=== PATIENT | female | born 1975 | race Caucasian/White ===

== ENCOUNTER 2020-10-12 12:11 | Emergency (ER) | payer MEDICAID ==
[~2020-10-12] VITALS: Ht 154.9 cm; Wt 122.0 kg
[2020-10-12 12:42] VITALS: BP 136/82
--- NOTE | 2020-10-12 12:57 | PHYS DOC ---
General Adult EDM: Chief Complaint: BACK PAIN OR INJURY HPI: HPI: Patient is a 45 year old female who presents to the ED today complaining of moderate low back pain with spasms, this is a chronic issue for this patient. Patient denies any injuries, denies any loss of bowel/bladder function, states she used to take oxycodone and oxycodone from her PCP. She states she called the PCP to get an appointment for refill and she was informed she has been terminated by the PCP. Review of Systems: Review of Systems: Constitutional: Denies fever or chills. [] GI: Denies abdominal pain, nausea, vomiting, bloody stools or diarrhea. [] : Denies dysuria. [] Musculoskeletal: Reports low back pain and spasms Integument: Denies rash. [] Neurologic: Denies headache, focal weakness or sensory changes. [] Psychiatric: Denies depression or anxiety. [] Heart Score: C/O Chest Pain: N/A Risk Factors: Risk Factors: DM, Current or recent (<one month) smoker, HTN, HLP, family history of CAD, obesity. Risk Scores: Score 0 - 3: 2.5% MACE over next 6 weeks - Discharge Home Score 4 - 6: 20.3% MACE over next 6 weeks - Admit for Clinical Observation Score 7 - 10: 72.7% MACE over next 6 weeks - Early Invasive Strategies Allergies: Allergies: Allergies Coded Allergies Type Severity Reaction Last Updated Verified NSAIDS (Non-Steroidal Anti-Inflamma Adverse Reaction Severe 10/12/20 Yes Physical Exam: PE: Constitutional: Well developed, well nourished, no acute distress, non-toxic appearance. [] Abdomen: Bowel sounds normal, soft, no tenderness, no masses, no pulsatile masses. [] Skin: Warm, dry, no erythema, no rash. [] Back: No tenderness, no CVA tenderness. [] Extremities: No tenderness, no cyanosis, no clubbing, ROM intact, no edema. [] Neurologic: Alert and oriented X 3, normal motor function, normal sensory function, no focal deficits noted. [] Psychologic: flat affect, appears tearful EKG: EKG: [] Radiology/Procedures: Radiology/Procedures: [] Course & Med Decision Making: Course & Med Decision Making Pertinent Labs and Imaging studies reviewed. (See chart for details) This is a 45-year-old female patient presenting to the ED today with low back pain and spasms, this is a chronic issue in this patient, it sounds like she has been fired by the PCP. She will see a new PCP on Friday Dr. Salcedo. She needs oxycodone and OxyContin for her pain. Informed patient I will not refill both of them. I offered her 3-day supply of oxycodone until she sees her new PCP on Friday. Also refereed to pain clinic Sara Disclaimer: Sara Disclaimer: This electronic medical record was generated, in whole or in part, using a voice recognition dictation system. Departure Departure Impression: Primary Impression: Back pain Qualified Codes: M54.5 - Low back pain; G89.29 - Other chronic pain Disposition: HOME / SELF CARE / HOMELESS Condition: STABLE Referrals: JORJE HANCOCK MD (PCP) YASHIRA DE LA PAZ MD follow up as soon as possible Patient Instructions: Back Pain, Adult, [id number] Additional Instructions: Please follow-up with your new doctor on Friday as well as the pain clinic doctor provided. The emergency room does not refill narcotic pain medicines Scripts Oxycodone/Apap 10-325 (PERCOCET 10-325 MG TABLET ) 1 Each Tablet 1 TAB PO PRN TID PRN for PAIN MDD 3 Tablet(s), #10 TAB 0 Refills Prov: VANGIE SHERWOOD APRN 10/12/20 VANGIE SHERWOOD APRN Oct 12, 2020 12:57
[2020-10-12] MEDS ORDERED: oxyCODONE/APAP 10/325 1 TAB TABLET PO ONE (13:00)
[2020-10-12] MEDS ORDERED: OXYC1TAB22 PO (13:01)
== END 2020-10-12 13:07 | disposition home or self-care (01) ==
LOC: ER 12:11
DX: M54.5 Low back pain (principal); G89.29 Other chronic pain; Z88.8 Allergy status to other drugs, medicaments and biological substances
CPT/HCPCS: 99283

== ENCOUNTER 2020-10-16 09:11 | Emergency (ER) | payer MEDICAID ==
[~2020-10-16] VITALS: Ht 154.9 cm; Wt 127.2 kg
[~2020-10-16 09:11] MED LIST: OXYC1TAB22 PO
[2020-10-16 09:15] VITALS: BP 160/98
--- NOTE | 2020-10-16 09:27 | PHYS DOC ---
Past Medical History Past Medical History: Anemia, Anxiety, Asthma, Depression, GERD Additional Past Medical Histor: PCOS, CHRONIC PAIN, SEASON ALLERGIES, INSOMNIA Past Surgical History: Cholecystectomy, Tubal ligation, Other Additional Past Surgical Histo: CYST REMOVED FROM LEFT BREAST, ACL SX Smoking Status: Current Every Day Smoker Alcohol Use: Sober General Adult EDM: Chief Complaint: LOWER EXT PAIN HPI: HPI: Patient is a 45 year old female who presents to the ED today complaining of moderate bilateral low back pain radiating to bilateral lower extremities with spasms, patient reports pain is chronic. Denies any known injury. Denies any loss of bowel/bladder function. Patient states she was supposed to see a new primary care doctor Dr. Salcedo today but was told on Friday she needs to get medical records from the previous doctor (Dr. Hancock) who terminated her before she can be seen. She states she does not know how to get her medical records so she came back to the ED. Of note she was seen in the ED 3 days ago and was requesting refill of Oxycodone and Oxycontin Review of Systems: Review of Systems: Constitutional: Denies fever or chills. [] GI: Denies abdominal pain, nausea, vomiting, bloody stools or diarrhea. [] : Denies dysuria. [] Musculoskeletal: Reports low back pain Integument: Denies rash. [] Neurologic: Denies headache, focal weakness or sensory changes. [] Psychiatric: Denies depression or anxiety. [] Heart Score: C/O Chest Pain: N/A Risk Factors: Risk Factors: DM, Current or recent (<one month) smoker, HTN, HLP, family history of CAD, obesity. Risk Scores: Score 0 - 3: 2.5% MACE over next 6 weeks - Discharge Home Score 4 - 6: 20.3% MACE over next 6 weeks - Admit for Clinical Observation Score 7 - 10: 72.7% MACE over next 6 weeks - Early Invasive Strategies Allergies: Allergies: Allergies Coded Allergies Type Severity Reaction Last Updated Verified NSAIDS (Non-Steroidal Anti-Inflamma Adverse Reaction Severe 10/12/20 Yes Physical Exam: PE: Constitutional: Well developed, well nourished, no acute distress, non-toxic ap pearance. [] Skin: Warm, dry, no erythema, no rash. [] Back: No tenderness, no CVA tenderness. [] Extremities: No tenderness, no cyanosis, no clubbing, ROM intact, no edema. [] Neurologic: Alert and oriented X 3, normal motor function, normal sensory function, no focal deficits noted. [] Psychologic: Affect normal, judgement normal, mood normal. [] EKG: EKG: [] Radiology/Procedures: Radiology/Procedures: [] Course & Med Decision Making: Course & Med Decision Making Pertinent Labs and Imaging studies reviewed. (See chart for details) This is a 45-year-old female patient presenting to the ED today complaining of chronic low back pain. No known injury. Patient was seen in the ED 3 days ago for the same complaint. Three days ago she stated she has been terminated by her PCP. She stated she is supposed to see the new primary care doctor today now she states she was not able to see the new primary care doctor because on Friday she was told she needs to bring medical records from the old doctor. She states she does not know how to get the records. I talked to patient at length. I gave her several ways of getting medical records. First method was to go back to the old doctor and request her paper copies of the medical records and take them to the new doctor or ask them to fax to the new doctor. Another way was to go to the new doctor's office and sign a consent for them to get information from the old doctor. She states on Friday they told her at the new doctor's office they did not have any consent forms for release of information. Informed patient this is strange all doctor's office have release of information consent forms. Informed her she might consider logging into the portal of the old doctors office and get her medical records. At this point I felt she does not need to be given her pain medicine prescriptions she needs to make an effort and be seen by the new doctor. I had given her contact information for Dr. [facility] at [place]. She states she called the office and was unable to get through. Informed patient she has to make a genuine effort to get her records from the previous doctor and see the new primary care doctor. Sara Disclaimer: Sara Disclaimer: This electronic medical record was generated, in whole or in part, using a voice recognition dictation system. Departure Departure Impression: Primary Impression: Back pain Qualified Codes: M54.42 - Lumbago with sciatica, left side; M54.41 - Lumbago with sciatica, right side; G89.29 - Other chronic pain Disposition: 01 HOME / SELF CARE / HOMELESS Condition: STABLE Referrals: JORJE HANCOCK MD (PCP) YASHIRA DE LA PAZ MD follow up as soon as possible Patient Instructions: Back Pain, Adult Additional Instructions: Please follow up with your doctor as soon as possible VANGIE SHERWOOD APRN Oct 16, 2020 09:27
== END 2020-10-16 09:36 | disposition home or self-care (01) ==
LOC: ER 09:11
DX: M54.42 Lumbago with sciatica, left side (principal); M54.41 Lumbago with sciatica, right side; G89.29 Other chronic pain; M62.830 Muscle spasm of back; F41.9 Anxiety disorder, unspecified; J45.909 Unspecified asthma, uncomplicated; K21.9 Gastro-esophageal reflux disease without esophagitis; F17.200 Nicotine dependence, unspecified, uncomplicated; F31.9 Bipolar disorder, unspecified; Z88.6 Allergy status to analgesic agent; Z86.2 Personal history of diseases of the blood and blood-forming organs and certain disorders involving the immune mechanism
CPT/HCPCS: 99284

== ENCOUNTER → 2020-12-22 | Outpatient (CLI) | payer MEDICAID ==
[~2020-12-22] MED LIST changes: +ACET500T68 PO; +DULO60CA6 PO; +ERGO500089 PO; +FERR325T14 PO; +FLUT1BLS9 IH; +IOHEXOL 180 MG/ML 10 ML VIAL. ONE; +METF500T16 PO; +METH-561 PO; +MONT10TA49 PO; +OMEP40CA7 PO; +TRAZ300T2 PO; +VENTOLIN HFA18 GM INH; +methylPREDNISolone ACETATE 40 MG/ML VIAL. ONE; +methylPREDNISolone ACETATE 80 MG/ML VIAL. ONE
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
--- NOTE | 2020-12-22 11:47 | PDOC4 ---
Procedure Note: ICD 10 Code: ICD 10 Code: M54.16 M51.36 Procedure Note: Patient was consented for lumbar epidural steroid injection with fluoroscopic guidance. Risks were discussed including but not limited to: Bleeding, infection, possibility of epidural hematoma and subsequent neurological compromise, dural puncture, headaches, spinal cord and/or nerve damage, side effects of steroid medication, and poor results regarding pain control. Patient understands and wished to proceed. Procedure is lumbar epidural steroid injection under local anesthetic using sterile prep and drape at the L4-5 level using C-arm fluoroscopic guidance in both AP and lateral views medications injected is 120 mg Depo-Medrol +10mL preservative-free normal saline and 2 mL contrast- condition at discharge is stable patient tolerated procedure well had no complications. YASHIRA DE LA PAZ MD Dec 22, 2020 11:46
== END | disposition home or self-care (01) ==
LOC: PNCL 10:26
PROVIDERS: ATTEND Anesthesiology
DX: M54.5 Low back pain (principal); M51.16 Intervertebral disc disorders with radiculopathy, lumbar region; M79.604 Pain in right leg; J45.909 Unspecified asthma, uncomplicated; E66.9 Obesity, unspecified; F41.9 Anxiety disorder, unspecified; F32.9 Major depressive disorder, single episode, unspecified; F17.210 Nicotine dependence, cigarettes, uncomplicated; Z79.84 Long term (current) use of oral hypoglycemic drugs; Z79.899 Other long term (current) drug therapy; Z98.890 Other specified postprocedural states; Z88.8 Allergy status to other drugs, medicaments and biological substances
CPT/HCPCS: 62323; G0463; J1030; J1040; Q9965

== ENCOUNTER → 2021-01-08 | Outpatient (CLI) | payer MEDICAID ==
[~2021-01-08] MED LIST changes: -methylPREDNISolone ACETATE 40 MG/ML VIAL. ONE
--- NOTE | 2021-01-08 09:40 | PDOC ---
Progress Note - Pain Clinic Date of Service: DOS: DATE: 01/08/21 TIME: 09:37 Diagnosis: Dx: Lumbar radiculopathy with lumbar degenerative disc disease History or Present Illness: HPI: 45-year-old female returns for follow-up status post lumbar epidural steroid injection x1. Patient reports 75% improvement initially but only for few days pain is down back to better 40s and improve overall patient reports pain in the low back and in the left lower extremity as it was previously posterior gluteus posterior thigh lateral thigh anterior thigh medial thigh medial lower leg as well with some numbness and tingling in the foot on the left side patient repo rts the pain in the back sharp and dull aching shooting can be tingling burning stabbing can be severe or bearable patient reports a 10 on scale 10 at its worst over the past week 8 on average 6 its least is a 6 today. Patient reports no new motor or sensory deficits patient has been taking Tylenol 3 times a day up to 1000 mg 3 times per day we discussed to be careful with this dose and try to decrease this as possible. Patient understands. Patient reports no new motor or sensory deficits or incontinence. Physical Exam: VS: Blood pressure is 25/91 pulse 85 respirations 18 temperature 98.5 F height is 5 foot 1 and three-quarter inches weight is 290 pounds PE: PHYSICAL EXAMINATION: GENERAL: The patient is awake, alert, oriented, appropriate, very pleasant in demeanor HEENT: Shows normocephalic, atraumatic. Extraocular movements are intact and symmetrical. Oral cavity: Mucous membranes moist and pink. NECK: Shows anterior throat supple without palpable lymphadenopathy noted. Swallow reflex symmetrical. CHEST: Shows normal on inspection. Breath sounds are clear bilaterally, distant but no rales or rhonchi. HEART: Shows S1, S2 clear. No murmurs auscultated. ABDOMEN: Soft, nontender, nondistended, obese. No palpable organomegaly is noted. BACK: Shows spine grossly in the midline. Normal-appearing cervical lordotic curvature. There is slightly increased thoracic kyphosis, some minor flattening of the lumbar lordotic curvature. Lumbar paraspinous muscles show symmetrical on inspection, on palpation shows some moderate tenderness diffusely throughout the upper, middle and lower distribution of the paraspinous muscles, but without specific trigger points, without radiation of pain. The patient has good rotational motion of the lumbar spine, both laterally as well as extension and flexion without significant difficulty. EXTREMITIES: Lower extremities show deep tendon reflexes 1+ in the patellar and tendo calcaneus tendons. Motor exam is 5 on a scale of 5 with right dorsiflexion, extension, quadriceps and hamstring flexion and 4/5 on the left. Peripheral pulses are 1+ posterior tibial. No peripheral edema is noted bilaterally. Lower extremities are warm and dry to touch, equal in color and appearance. SKIN: Shows warm and dry, good turgor. No edema. No sores, rashes or bruising throughout. Procedure: Procedure: Options were discussed with the patient. Patient chart reviews her current medication regimen updated current review of systems updated today as well. We will proceed with a lumbar epidural steroid injection today with fluoroscopic guidance. Risks were discussed including but not limited to: Bleeding, infection, possibility of epidural hematoma and subsequent neurological compromise, dural puncture, headaches, spinal cord and/or nerve damage, side effects of steroid medication, and poor results regarding pain control. Patient understands and wished to proceed. She will return to the clinic in approximate 2 weeks for follow-up, was counseled as to return appointment activity level and side effects to be aware of. Medication Injected: Med Injected: Procedure is lumbar epidural steroid injection under local anesthetic using eldon rile prep and drape at the L4-5 level using C-arm fluoroscopic guidance in both AP and lateral views medications injected is 120 mg Depo-Medrol +10mL preservative-free normal saline and 2 mL contrast- condition at discharge is stable patient tolerated procedure well had no complications. Condition at Discharge: Condition at Discharge: Condition at discharge stable, patient already the procedure well and had no complications. YASHIRA DE LA PAZ MD Jan 08, 2021 09:40
--- NOTE | 2021-01-08 09:40 | PDOC4 ---
Procedure Note: ICD 10 Code: ICD 10 Code: M54.16 M51.36 Procedure Note: Patient was consented for lumbar epidural steroid injection with fluoroscopic guidance. Risks were discussed including but not limited to: Bleeding, infection, possibility of epidural hematoma and subsequent neurological compromise, dural puncture, headaches, spinal cord and/or nerve damage, side effects of steroid medication, and poor results regarding pain control. Patient understands and wished to proceed. Procedure is lumbar epidural steroid injection under local anesthetic using sterile prep and drape at the L4-5 level using C-arm fluoroscopic guidance in both AP and lateral views medications injected is 120 mg Depo-Medrol +10mL preservative-free normal saline and 2 mL contrast- condition at discharge is stable patient tolerated procedure well had no complications. YASHIRA DE LA PAZ MD Jan 08, 2021 09:40
== END | disposition home or self-care (01) ==
LOC: PNCL 09:00
PROVIDERS: ATTEND Anesthesiology
DX: M51.16 Intervertebral disc disorders with radiculopathy, lumbar region (principal); F17.210 Nicotine dependence, cigarettes, uncomplicated; Z79.899 Other long term (current) drug therapy; Z98.890 Other specified postprocedural states
CPT/HCPCS: 62323; J1040; Q9965